=== PATIENT | male | born 1970 | race Caucasian/White ===

== ENCOUNTER → 2017-11-29 | Day surgery (SDC) | payer OTHER ==
[2017-11-28 16:23] VITALS: BMI 43.2
[~2017-11-29] MED LIST: BUPIVACAINE HCL/EPINEPHRINE/PF 30 ML VIAL IJ ONE; BUPIVACAINE HCL/PF 2.5 MG/ML - 30 ML VIAL IJ ONE; LIDOCAINE HCL/PF 2% SDV 5ML VIAL ONE; MIDAZOLAM HCL 2 MG/2 ML SINGLE DOSE VIAL ONE; PROPOFOL 20 ML ONE; SUCCINYLCHOLINE CHLORIDE 200 MG/10 ML VIAL ONE; ceFAZolin SODIUM 1 GM VIAL ONE; oxyCODONE HCL 5 MG TABLET ONE; oxyCODONE HCL 5 MG TABLET PO ONE; oxyCODONE HCL 5 MG TABLET PO PRN
--- NOTE | 2017-11-29 08:35 | OP ---
Operative Note - Note: Operative Date: 11/29/17 Pre-Operative Diagnosis: Recurrent right wrist deQuervain's tenosynovitis Operation: Open right wrist first dorsal compartment release Findings: Accessory EPB compartment Intervening septum excised Post-Operative Diagnosis: Same as Pre-op Surgeon: Paul Ibanez [employer] Job Titles: Govind Ibanez Anesthesiologist/DELIVERY ARCHITECT: Mikie Youngblood Anesthesia: Local Estimated Blood Loss (mls): 0 Fluid Volume Replaced (mls): 500 (Crystalloid) Operative Report Dictated: Yes
--- NOTE | 2017-11-29 08:37 | PN ---
Progress Note (short form) - Note Progress Note: 47M s/p right wrist open first dorsal extensor compartment release POD #0. -Pain control. -Incentive spirometry. -PWB RUE; nothing heavier than weight of cell phone. -Gentle right hand ROM encouraged beginning tomorrow (11/30/2017). -Keep dressing clean & dry. -Percocet, meloxicam ordered to pharmacy for analgesia; OK to use OTC NSAID's instead. -Elevate wrist/hand above level of heart. -Discharge home: f/u [facility] [place] Office 12/07/2017; call for appointment: . Paul Ibanez MD (Orthopaedic Surgery).
[2017-11-29 08:59] VITALS: PULSE 58
--- NOTE | 2017-11-29 09:42 | OP ---
Date of Operation: 11/29/2017 Surgeon: Paul Ibanez MD Plush Dresser: Govind Ibanez MD Pre-Operative Diagnosis: Recurrent right wrist De Quervains tenosynovitis. Post-Operative Diagnosis: Recurrent right wrist De Quervains tenosynovitis. Surgical Procedure: Open release of 1st dorsal compartment of right wrist. Anaesthesia: Sedation, local. Position: Supine Incision: Transverse. Tourniquet Pressure: 250mmHg. Tourniquet Time: 19 minutes. Estimated Blood Loss: 0cc. Intravenous Fluid: 500cc. Specimens: None. Drains: None. Complications: None. Urine output: None. Bacteriology: None. Transfusions: None. Closure: 3-0 Nylon. Indications: The patient is a 47-year-old male who was indicated for a right wrist open De Quervains (first dorsal compartment) release in order to ameliorate the symptoms associated with De Quervains tenosynovitis, and improve the use of his hand. The patient was identified in the holding area by his armband. A long discussion was held with the patient regarding the risks, benefits and alternatives of the above-named procedure. Risks include but are not limited to : pain, bleeding, infection, damage to surrounding structures (including nerves , blood vessels, skin, ligaments, tendons and bone), reflex sympathetic dystrophy (RSD), incomplete carpal tunnel release, wound complications, need for further surgery, blood clots, myocardial infarction, pulmonary embolism, anesthesia complications, compartment syndrome, limb loss, limp, loss of function, and . Benefits as mentioned above. Alternatives include no surgery. All questions were answered. The patient understood and agreed to the procedure. Informed consent was obtained, witnessed and verified. The patients correct operative limb - the right upper extremity - was marked, and the patient was taken to the operating room after being seen by the anesthesia and nursing staff. Procedure: The patient was brought into the operating room, placed supine on the OR table and secured with a safety strap. Consent and the operative site were again verified with the patient and nursing and anaesthesia staff. Sedation and 2g IV Ancef, was then administered without complication. A time-out was done led by me, the attending surgeon. The patient was positioned with all bony prominences well padded. The operative arm was placed on an arm table. A tourniquet was placed proximally on the right arm and set to 250mmHg. The operative limb was prepped in standard sterile fashion using betadine prep & scrub, wiped off with alcohol, DuraPrep applied, and then free draped. A time-out was repeated, the right upper extremity was exsanguinated using an Esmarch, the tourniquet was inflated, and the case began. 3cc of 0.25% Marcaine, without epinephrine, was injected into the intended incision site. A 2.5cm transverse skin incision was made over the area of tenderness of the first dorsal compartment of the wrist, overlying the radial aspect of the distal radial styloid. Blunt dissection with Metzenbaum scissors was carried through the subcutaneous fat down to the level of the extensor retinaculum overlying the first dorsal compartment tendons. The superficial branch of the radial nerve was identified. Ragnell retractors were used to retract this nerve safely out of the way, and to further facilitate visualization of the wound. The proximal and distal borders of the retinaculum were identified. A longitudinal incision through the retinaculum was made using a fresh #15 blade. The retinaculum was fully released proximally and distally using Metzenbaum scissors. A freer elevator was used to mobilize the free flaps of the incised retinaculum. 2 slips of the abductor pollicis longus (APL) tendon were identified and elevated using a freer elevator. The extensor pollicis brevis (EPB) tendon was visualized and found to be within its own sub-sheath. The sub-sheath was incised using a fresh #15 blade and the dorsal wall of the septum was partially excised. The EPB was elevated using a freer elevator. The volar flap of the extensor retinaculum remained over the released tendons. The thumb was then abducted and extended and there was no evidence of volar subluxation of the APL or EPB tendons. The wound was then copiously irrigated using normal saline solution. The skin was closed using a 3-0 nylon suture in simple interrupted fashion. A sterile compressive dressing was applied. The tourniquet was released at a final time of 19 minutes. The sponge and needle counts were correct at the end of the case and I, the attending surgeon, was present and scrubbed throughout the case. The patient was then transferred to the recovery room in stable condition, as per the anesthesia team, having tolerated the procedure well. MD SENG [id number] MTDD
[2017-11-29 09:44] VITALS: BP 135/77; TEMP 97
== END | disposition home or self-care (01) ==
LOC: FASU 05:59
PROVIDERS: ATTEND Orthopaedic Surgery Adult Reconstructive Orthopaedic Surgery
PROC: 0LN50ZZ Release Right Lower Arm and Wrist Tendon, Open Approach (ICD-10-PCS; principal; 2017-11-29 08:04)
DX: M65.4 Radial styloid tenosynovitis [de Quervain] (principal)
CPT/HCPCS: 82962